=== PATIENT | female | born 1925 | race Caucasian/White ===

== ENCOUNTER 2017-09-05 19:31 | Emergency (ER) | payer OTHER ==
[~2017-09-05] VITALS: Ht 147.3 cm; Wt 59.4 kg
[~2017-09-05 19:31] MED LIST: DULO60CA44 PO; GABA-586 PO; LAMO100T PO; LEVO100T5 PO; POTA20TA4 PO; SIMV80TA3 PO; VALS1TAB14 PO
[2017-09-05 19:50] LABS: BASO % 0 % (0-3); EOS % 3 % (0-3); HEMATOCRIT 31.6 % (36.0-47.0); HEMOGLOBIN 10.3 g/dL (12.0-15.5); LYMPH # 2.6 x10^3/uL (1.0-4.8); LYMPH % 29 % (24-48); MEAN CORPUSCULAR HEMOGLOBIN 30 pg (25-35); MEAN CORPUSCULAR HGB CONC 33 g/dL (31-37); MEAN CORPUSCULAR VOLUME 93 fL (79-100); MONO % 9 % (0-9); NEUT % 59 % (31-73); PLATELET COUNT 234 x10^3/uL (140-400); RED BLOOD COUNT 3.41 x10^6/uL (3.50-5.40); RED CELL DISTRIBUTION WIDTH 13.3 % (11.5-14.5); WHITE BLOOD COUNT 8.9 x10^3/uL (4.0-11.0)
--- NOTE | 2017-09-05 20:04 | PHYS DOC ---
Past Medical History Past Medical History: High Cholesterol, Hypertension, Seizure, Other Additional Past Medical Histor: hypokalemia,chronic back pain/sciatica Past Surgical History: Tonsillectomy, Other Additional Past Surgical Histo: partial hyster,ulcer surg,spinal surg Alcohol Use: None Drug Use: None Adult General Chief Complaint Chief Complaint: NEURO SYMPTOMS/DEFICITS [facility] HPI She is a pleasant 89-year-old female with a known history of hypertension, hyperlipidemia and a prior seizure disorder along with chronic back pain and tic douloureux who presents with facial pain and paresthesias of the face. Patient has periods of facial pain consistent with tic douloureux that lasts a few minutes. She says that what her symptoms she has localized swelling over the nerves when this occurs. She denies any direct trauma, denies any headache, denies any vision changes, problems swallowing, weakness in her upper or lower extremities, change in medications, fevers, night sweats, chills or other symptoms. She was concerned that her symptoms were longer than normal but now but they've resolved she would rather go home. EMS's initial report was asymmetry with facial paresthesias but after the history I doubt this is a stroke. Review of Systems Review of Systems Constitutional: Denies fever or chills [] Eyes: Denies change in visual acuity, redness, or eye pain [] HENT: Denies nasal congestion or sore throat [] Respiratory: Denies cough or shortness of breath [] Cardiovascular: No additional information not addressed in HPI [] GI: Denies abdominal pain, nausea, vomiting, bloody stools or diarrhea [] : Denies dysuria or hematuria [] Musculoskeletal: Denies back pain or joint pain [] Integument: Denies rash or skin lesions [] Neurologic: Denies headache, she had facial pain consistent with her tic douloureux, she has had localized facial paresthesia now resolved, but no weakness in her upper or lower legs its new. As that her right lower leg does not work as well as as in the past. Endocrine: Denies polyuria or polydipsia [] All other systems were reviewed and found to be within normal limits, except as documented in this note. Allergies Allergies Allergies Coded Allergies Type Severity Reaction Last Updated Verified morphine Allergy Severe gi upset 04/01/15 Yes Physical Exam Physical Exam Constitutional: Well developed, well nourished, no acute distress, non-toxic appearance. [] HENT: Normocephalic, atraumatic, bilateral external ears normal, oropharynx dry and no dentition, no oral exudates, nose normal. [] Eyes: PERRLA, EOMI, conjunctiva normal, no discharge. [] Neck: Normal range of motion, no tenderness, supple, no stridor. [] Cardiovascular:Heart rate regular rhythm, no murmur [] Lungs & Thorax: Bilateral breath sounds clear to auscultation [] Abdomen: Bowel sounds normal, soft, no tenderness, no masses, no pulsatile masses. [] Skin: Warm, dry, no erythema, no rash. [] Extremities: No tenderness, no cyanosis, no clubbing, ROM intact, no edema. [] Neurologic: Alert and oriented X 3, she has slight weakness to the right lower extremity, normal sensory function, no focal deficits noted. [] Psychologic: Affect normal, judgement normal, mood normal. [] Recent stroke scale on arrival only demonstrates weakness in the right lower leg her score on arrival is only 1. 1a. Level of consciousness: 0 = Alert; keenly responsive. 1 = Not alert; but arousable by minor stimulation to obey, answer, or respond. 2 = Not alert; requires repeated stimulation to attend, or is obtunded and requires strong or painful stimulation to make movements (not stereotyped). 3 = Responds only with reflex motor or autonomic effects or totally unresponsive , flaccid, and areflexic. 1b. LOC questions: 0 = Answers both questions correctly. 1 = Answers one question correctly. 2 = Answers neither question correctly. 1c. LOC commands: 0 = Performs both tasks correctly. 1 = Performs one task correctly. 2 = Performs neither task correctly. 2. Best gaze: 0 = Normal. 1 = Partial gaze palsy; gaze is abnormal in one or both eyes, but forced deviation or total gaze paresis is not present. 2 = Forced deviation, or total gaze paresis not overcome by the oculocephalic maneuver. 3. Visual: 0 = No visual loss. 1 = Partial hemianopia. 2 = Complete hemianopia. 3 = Bilateral hemianopia (blind including cortical blindness). 4. Facial palsy: 0 = Normal symmetrical movements. 1 = Minor paralysis (flattened nasolabial fold, asymmetry on smiling). 2 = Partial paralysis (total or near-total paralysis of lower face). 3 = Complete paralysis of one or both sides (absence of facial movement in the upper and lower face). 5. Motor arm: 0 = No drift; limb holds 90 (or 45) degrees for full 10 seconds. 1 = Drift; limb holds 90 (or 45) degrees, but drifts down before full 10 seconds ; does not hit bed or other support. 2 = Some effort against gravity; limb cannot get to or maintain (if cued) 90 ( or 45) degrees, drifts down to bed, but has some effort against gravity. 3 = No effort against gravity; limb falls. 4 = No movement. UN = Amputation or joint fusion, explain: 5a. Left arm 5b. Right arm 6. Motor le = No drift; leg holds 30-degree position for full 5 seconds. 1 = Drift; leg falls by the end of the 5-second period but does not hit bed. 2 = Some effort against gravity; leg falls to bed by 5 seconds, but has some effort against gravity. 3 = No effort against gravity; leg falls to bed immediately. 4 = No movement. UN = Amputation or joint fusion, explain: 6a. Left leg 6b. Right leg 7. Limb ataxia: 0 = Absent. 1 = Present in one limb. 2 = Present in two limbs. UN = Amputation or joint fusion 8. Sensory: 0 = Normal; no sensory loss. 1 = Wqdg-vi-entccaug sensory loss; patient feels pinprick is less sharp or is dull on the affected side; or there is a loss of superficial pain with pinprick , but patient is aware of being touched. 2 = Severe to total sensory loss; patient is not aware of being touched in the face, arm, and leg. 9. Best language: 0 = No aphasia; normal. 1 = Wetg-eu-qhhqyluo aphasia; some obvious loss of fluency or facility of comprehension, without significant limitation on ideas expressed or form of expression. Reduction of speech and/or comprehension, however, makes conversation about provided materials difficult or impossible. For example, in conversation about provided materials, examiner can identify picture or naming card content from patient's response. 2 = Severe aphasia; all communication is through fragmentary expression; great need for inference, questioning, and guessing by the listener. Range of information that can be exchanged is limited; listener carries burden of communication. Examiner cannot identify materials provided from patient response. 3 = Mute, global aphasia; no usable speech or auditory comprehension. 10. Dysarthria: 0 = Normal. 1 = Ugzd-vv-cfzghcvs dysarthria; patient slurs at least some words and, at worst , can be understood with some difficulty. 2 = Severe dysarthria; patient's speech is so slurred as to be unintelligible in the absence of or out of proportion to any dysphasia, or is mute/anarthric. UN = Intubated or other physical barrier, explain: 11. Extinction and inattention (formerly neglect): 0 = No abnormality. 1 = Visual, tactile, auditory, spatial, or personal inattention or extinction to bilateral simultaneous stimulation in one of the sensory modalities. 2 = Profound emilia-inattention or extinction to more than one modality; does not recognize own hand or orients to only one side of space. Current Patient Data Vital Signs Vital Signs Date Time Temp Pulse Resp B/P (MAP) Pulse Ox O2 Delivery O2 Flow Rate FiO2 09/05/17 19:39 99.2 93 20 158/72 (100) 97 Room Air 99.2 Lab Values Laboratory Tests Test 09/05/17 02:35 09/05/17 19:40 Urine Collection Type U cath Urine Color Yellow Urine Clarity Clear Urine pH 6.5 Urine Specific [place]away 1.010 Urine Protein Negative mg/dL (NEG-TRACE) Urine Glucose (UA) Negative mg/dL (NEG) Urine Ketones (Stick) Negative mg/dL (NEG) Urine Blood Negative (NEG) Urine Nitrite Negative (NEG) Urine Bilirubin Negative (NEG) Urine Urobilinogen Dipstick 1.0 mg/dL (0.2 mg/dL) Urine Leukocyte Esterase Small (NEG) Urine RBC Occ /HPF (0-2) Urine WBC 5-10 /HPF (0-4) Urine Squamous Epithelial Cells Occ /LPF Urine Bacteria 0 /HPF (0-FEW) Urine Mucus Slight /LPF White Blood Count 8.9 x10^3/uL (4.0-11.0) Red Blood Count 3.41 x10^6/uL (3.50-5.40) L Hemoglobin 10.3 g/dL (12.0-15.5) L Hematocrit 31.6 % (36.0-47.0) L Mean Corpuscular Volume 93 fL (79-100) Mean Corpuscular Hemoglobin 30 pg (25-35) Mean Corpuscular Hemoglobin Concent 33 g/dL (31-37) Red Cell Distribution Width 13.3 % (11.5-14.5) Platelet Count 234 x10^3/uL (140-400) Neutrophils (%) (Auto) 59 % (31-73) Lymphocytes (%) (Auto) 29 % (24-48) Monocytes (%) (Auto) 9 % (0-9) Eosinophils (%) (Auto) 3 % (0-3) Basophils (%) (Auto) 0 % (0-3) Neutrophils # (Auto) 5.2 x10^3uL (1.8-7.7) Lymphocytes # (Auto) 2.6 x10^3/uL (1.0-4.8) Monocytes # (Auto) 0.8 x10^3/uL (0.0-1.1) Eosinophils # (Auto) 0.3 x10^3/uL (0.0-0.7) Basophils # (Auto) 0.0 x10^3/uL (0.0-0.2) Sodium Level 142 mmol/L (136-145) Potassium Level 4.2 mmol/L (3.5-5.1) Chloride Level 103 mmol/L (98-107) Carbon Dioxide Level 28 mmol/L (21-32) Anion Gap 11 (6-14) Blood Urea Nitrogen 22 mg/dL (7-20) H Creatinine 1.3 mg/dL (0.6-1.0) H Estimated GFR (Cockcroft-Gault) 38.6 BUN/Creatinine Ratio 17 (6-20) Glucose Level 148 mg/dL (70-99) H Calcium Level 9.1 mg/dL (8.5-10.1) Magnesium Level 2.0 mg/dL (1.8-2.4) Total Bilirubin 0.3 mg/dL (0.2-1.0) Aspartate Amino Transferase (AST) 21 U/L (15-37) Alanine Aminotransferase (ALT) 28 U/L (14-59) Alkaline Phosphatase 152 U/L (46-116) H Creatine Kinase 146 U/L (26-192) Creatine Kinase MB (Mass) 1.2 ng/mL (0.0-3.6) Creatine Kinase MB Relative Index 0.8 % (0-4) ND-Nnb-F-Type Natriuretic Peptide 125 pg/mL (0-449) Total Protein 6.7 g/dL (6.4-8.2) Albumin 3.5 g/dL (3.4-5.0) Albumin/Globulin Ratio 1.1 (1.0-1.7) Laboratory Tests 09/05/17 19:40 Laboratory Tests 09/05/17 19:40 EKG EKG []EKG read by me timed at 7:43 PM demonstrates a supraventricular rhythm with a ventricular conduction delay with a widened QRS complex of 134, [place] interval of 16 which is normal, QTc is 472 which is normal. There is a old Q-wave in the anterior, with a left bundle-branch block. This is an abnormal EKG Radiology/Procedures Radiology/Procedures [] [facility] [address] [place] [address] IMAGING REPORT Signed PATIENT: TANNER CORONEL ACCOUNT: [id number] : 1925 LOCATION: ER AGE: 89 SEX: F EXAM STATUS: PRE ER ORD. PHYSICIAN: GLENN RAMOS MD REASON: facial numbness PROCEDURE: CT HEAD WO CONTRAST CT head without contrast 09/05/2017 CLINICAL INDICATION: Left facial numbness. History of seizures. Concern for future seizures. COMPARISON: None. TECHNIQUE: Multiple CT images of the head were obtained without contrast according to standard protocol. *One or more of the following individualized dose reduction techniques were utilized for this examination: 1. Automated exposure control. 2. Adjustment of the mA and/or kV according to patient size. 3. Use of iterative reconstruction technique. FINDINGS: Ventricles and subarachnoid spaces are normal in size and configuration for age. No acute intracranial hemorrhage or extra-axial fluid collection. There is patchy periventricular white matter low attenuation compatible with moderate nonspecific white matter disease. The basal cisterns are patent. No midline shift. The mastoid air cells and visualized paranasal sinuses are well aerated. IMPRESSION: 1. No acute intracranial hemorrhage. 2. Moderate nonspecific white matter disease, likely related to chronic small vessel ischemic disease. Electronically signed by: Bhupendra Kidd MD (09/05/2017 8:21 PM) [facility] DICTATED and SIGNED BY: BHUPENDRA KIDD MD DATE: 09/05/172018 CC: GLENN RAMOS MD; TATIANNA BENITO MD ~ Course & Med Decision Making Course & Med Decision Making Pertinent Labs and Imaging studies reviewed. (See chart for details) []Presents with a pain exacerbation from her tic douloureux, is no new evidence of seizure, stroke or other significant neurologic disorder at this time. Patient is at baseline. Patient's labs are unremarkable with elevation of her BUN/creatinine which is 24 and 1.3. Patient's electrocardiogram unremarkable does have some white blood cells in her urine and some leuk esterase I'll treat her as UTI. She has no other symptoms other complaints troponin is negative, chest x-rays unremarkable. My differential includes but not limited to: Neurally mediated vasovagal syncope, situational syncope, cardiac sinus syncope , orthostatic hypertension, medications, psychiatric interventions, neurologic syncope, cardiogenic syncopal B, to include organic heart disease congestive heart failure, cardiac dysrhythmia, seizure disorder, stroke or transient ischemic attack, bradycardia dysrhythmias, tachycardia dysrhythmias, PT, V. fib V. fib, cardiac abnormalities like first degree secondary third-degree AV blocks , prolonged QT, hypertrophic Omar myopathy, severe pulmonic stenosis, pulmonary arterial hypertension, atrial myxomas, aortic stenosis, valvular failure, alcohol consumption, adrenal insufficiency, drug effects from things like antidepressants, antihypertensive agents like beta blockers, vasodilators including calcium channel blockers and nitrates, autonomic insufficiency. When patient be offered pain medications and follow-up with her doctor placed on a short course of Macrobid for a UTI. Dragon Disclaimer Dragon Disclaimer This electronic medical record was generated, in whole or in part, using a voice recognition dictation system. Departure Departure Impression: Primary Impression: Tic douloureux Additional Impression: UTI (urinary tract infection) Disposition: 01 HOME, SELF-CARE Condition: IMPROVED Referrals: TATIANNA BENITO MD (PCP) Patient Instructions: Chronic Pain, Chronic Pain Management, Urinary Tract Infection Additional Instructions: discharge: I've spoken with the patient and/or caregivers. I've explained the patient's condition, diagnosis and treatment plan based on information available to me at this time. I've answered the patient's and/or caregivers questions and addressed any concerns. The patient and/or caregivers have a good understanding the patient's diagnosis, condition and treatment plan as can be expected at this point. Vital signs have been stabilized. The patient's condition is stable for discharge from the emergency department. The patient will pursue further outpatient evaluation with her primary care provider or other designated consulting physician as outlined in the discharge instructions. Patient and/or caregivers are agreeable to this plan of care and follow-up instructions have been explained in detail. The patient and/or caregivers have received these instructions in written format and expressed understanding of these discharge instructions. The patient and her caregivers are aware that if any significant change in condition or worsening of symptoms should prompt him to immediately return to this of the closest emergency department. If an emergent department is not readily available I would encourage him to call 911. Scripts Tramadol Hcl/Acetaminophen (TRAMADOL-ACETAMINOPHN 37.5-325) 1 Each Tablet 1 TAB PO Q4-6HRS, #10 TAB Prov: GLENN RAMOS MD 09/05/17 Problem Qualifiers GLENN RAMOS MD Sep 05, 2017 20:04
[2017-09-05 20:05] LABS: CALCIUM 9.1 mg/dL (8.5-10.1); CREATININE 1.3 mg/dL (0.6-1.0); GFR 38.6; POTASSIUM 4.2 mmol/L (3.5-5.1)
[2017-09-05 20:11] LABS: ALBUMIN 3.5 g/dL (3.4-5.0); ALBUMIN/GLOBULIN RATIO 1.1 (1.0-1.7); TOTAL BILIRUBIN 0.3 mg/dL (0.2-1.0); TOTAL PROTEIN 6.7 g/dL (6.4-8.2)
[2017-09-05 20:20] LABS: CKMB MASS 1.2 ng/mL (0.0-3.6)
--- NOTE | 2017-09-05 20:25 | RAD ---
CT head without contrast 09/05/2017 CLINICAL INDICATION: Left facial numbness. History of seizures. Concern for future seizures. COMPARISON: None. TECHNIQUE: Multiple CT images of the head were obtained without contrast according to standard protocol. *One or more of the following individualized dose reduction techniques were utilized for this examination: 1. Automated exposure control. 2. Adjustment of the mA and/or kV according to patient size. 3. Use of iterative reconstruction technique. FINDINGS: Ventricles and subarachnoid spaces are normal in size and configuration for age. No acute intracranial hemorrhage or extra-axial fluid collection. There is patchy periventricular white matter low attenuation compatible with moderate nonspecific white matter disease. The basal cisterns are patent. No midline shift. The mastoid air cells and visualized paranasal sinuses are well aerated. IMPRESSION: 1. No acute intracranial hemorrhage. 2. Moderate nonspecific white matter disease, likely related to chronic small vessel ischemic disease. Electronically signed by: Khoa Kidd MD (09/05/2017 8:21 PM) [facility]
[2017-09-05 20:39] LABS: BILIRUBIN,URINE NEGATIVE (NEG); GLUCOSE,URINE NEGATIVE (NEG); NITRITE,URINE NEGATIVE (NEG); PH,URINE 6.5; PROTEIN,URINE NEGATIVE (NEG-TRACE)
[2017-09-05 20:47] LABS: BACTERIA,URINE 0 /HPF (0-FEW); RBC,URINE OCC /HPF (0-2); SQUAMOUS EPITHELIAL CELL,UR OCC /LPF
[2017-09-05] MEDS ORDERED: TRAM1TAB4 PO (20:55)
[2017-09-05] MEDS ORDERED: NITR100C62 PO (21:19)
[2017-09-05 21:20] VITALS: BP 140/69
--- NOTE | 2017-09-06 07:06 | EKG ---
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
--- NOTE | 2017-09-06 08:58 | RAD ---
AP chest. History: Facial numbness AP view was taken of the chest. Lungs are clear. Heart is normal in size. There is a granuloma on the left. There is no pleural effusion. There is arthritis and rotator cuff degeneration in the shoulders. Impression: 1. No acute infiltrates.
== END 2017-09-05 21:25 | disposition home or self-care (01) ==
LOC: ER 19:31
DX: G50.0 Trigeminal neuralgia (principal); N39.0 Urinary tract infection, site not specified; E78.00 Pure hypercholesterolemia, unspecified; I10 Essential (primary) hypertension; G89.29 Other chronic pain; E78.5 Hyperlipidemia, unspecified; Z88.5 Allergy status to narcotic agent
CPT/HCPCS: 36415; 51701; 70450; 71010; 80053; 81001; 82553; 83735; 83880; 84484; 85025; 87086; 93005; 99285-25